=== PATIENT | male | born 1955 | race Caucasian/White ===

== ENCOUNTER → 2021-08-05 | Day surgery (SDC) | payer OTHER ==
[~2021-08-05] VITALS: Ht 182.9 cm; Wt 95.2 kg
[~2021-08-05] MED LIST: FLAX SEED OIL1 EACH PO; LIPITOR 10MG TA10 MG PO; LOVAZA1 GM PO
== END | disposition home or self-care (01) ==
LOC: FAS 13:00
DX: H26.493 Other secondary cataract, bilateral (principal); H18.529 Epithelial (juvenile) corneal dystrophy, unspecified eye; H43.813 Vitreous degeneration, bilateral; H35.372 Puckering of macula, left eye

== ENCOUNTER → 2021-09-02 | Day surgery (SDC) | payer OTHER ==
[~2021-09-02] VITALS: Ht 182.9 cm; Wt 95.2 kg
== END | disposition home or self-care (01) ==
LOC: FAS 12:46
DX: H26.493 Other secondary cataract, bilateral (principal); H18.509 Unspecified hereditary corneal dystrophies, unspecified eye; H43.813 Vitreous degeneration, bilateral; H35.372 Puckering of macula, left eye